=== PATIENT | female | born 1985 | race Caucasian/White ===

== ENCOUNTER 2016-05-19 14:52 | Emergency (ER) | payer OTHER ==
[2016-05-19 15:23] VITALS: BP 124/61
--- NOTE | 2016-05-19 15:29 | UC ---
Ear Complaint HPI - HPI Summary HPI Summary: RIGHT EAR PAIN/PRESSURE X "A COUPLE MONTHS." PT TX'D WITH Z-ODILIA FOR SINUSITIS APPROX 1 MO AGO WITHOUT RELIEF. No fever. she has sinus congestion but doesnt believe that she has a sinus infection. pain radiates into right jaw. 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 Does not chew gum a lot. Has had cerumen in ears that ahs had to be flushed before and wonders if that is the cause. Has had PE tubes as child. - History of Current Complaint Chief Complaint: UCEar Stated Complaint: RIGHT EAR PAIN Time Seen by Provider: 05/19/16 15:21 Hx Last Menstrual Period: 05/04/16 - Allergies/Home Medications Allergies/Adverse Reactions: Allergies Allergy/AdvReac Type Severity Reaction Status Date / Time No Known Allergies Allergy Verified 05/19/16 15:23 Home Medications: Home Medications Cyanocobalamin TAB* [Vitamin B12 TAB*] 1,000 mcg PO DAILY 05/19/16 [History Confirmed 05/19/16] Loratadine [Claritin 10 MG CAP] 10 mg PO DAILY 05/19/16 [History Confirmed 05/19] PMH/Surg Hx/FS Hx/Imm Hx Previously Healthy: Yes Respiratory History Of: Reports: Asthma - CHILDHOOD - Surgical History Surgical History: Yes Surgery Procedure, Year, and Place: Ovarian tumors 2008. OVARIAN CYSTECTOMY-- 2006. TONSILLECTOMY - Family History Known Family History: Negative: Cardiac Disease, Diabetes - Social History Alcohol Use: Occasionally Substance Use Type: None Smoking Status (MU): Former Smoker When Did the Patient Quit Smoking/Using Tobacco: 5 MOS AGO Review of Systems Constitutional: Negative Skin: Negative Eyes: Negative ENT: Ear Ache Respiratory: Negative Cardiovascular: Negative Gastrointestinal: Negative Genitourinary: Negative Motor: Negative Neurovascular: Negative Musculoskeletal: Negative Neurological: Negative Psychological: Negative All Other Systems Reviewed And Are Negative: Yes Physical Exam Triage Information Reviewed: Yes Appearance: Well-Appearing, No Pain Distress, Well-Nourished Vital Signs: Initial Vital Signs Temp 97.7 F 05/19/16 15:16 Pulse 63 05/19/16 15:16 Resp 14 05/19/16 15:16 BP 124/61 05/19/16 15:16 Pulse Ox 100 05/19/16 15:16 Vital Signs Reviewed: Yes Eye Exam: Normal ENT: Positive: Hearing grossly normal, Pharynx normal, TMs normal - scars from PE tubes b/l, Other: - no tenderness on TMJs. No cerumen b/l. no sinus tenderness b/l.. Negative: Tonsillar swelling, Tonsillar exudate, Muffled/ hoarse voice Dental Exam: Normal Neck exam: Normal Neck: Positive: Supple, Nontender, No Lymphadenopathy Respiratory Exam: Normal Respiratory: Positive: Lungs clear, Normal breath sounds, No respiratory distress, No accessory muscle use Cardiovascular Exam: Normal Cardiovascular: Positive: RRR, No Murmur, Pulses Normal, Brisk Capillary Refill Abdominal Exam: Normal Abdomen Description: Positive: Nontender, Soft Musculoskeletal Exam: Normal Neurological Exam: Normal Psychological Exam: Normal Skin Exam: Normal Ear Complaint Course/Dx - Differential Dx/Diagnosis Differential Diagnosis/HQI/PQRI: Cerumen Impaction, Foreign Body, Otitis Externa , Otitis Media, Perforated TM, TMJ Syndrome, URI Provider Diagnoses: Rt ear pain. TMJ vs eustachean tube dysfunction. Discharge - Discharge Plan Condition: Stable Disposition: HOME Patient Education Materials: Temporomandibular Disorder (ED), Eustachian Tube Dysfunction (GEN) Referrals: No Primary Care Phys,NOPCP [Primary Care Provider] - Additional Instructions: I believe your diagnosis is either TMJ or eustachean tube dysfunction that we discussed today. Use a netti pot or saline lavage followed by the steroid nasal spray (flonase or nasonex that are both OTC now) and take the claritin daily. Your Mom has had similar symptoms and your voiced that you wish to see the same ENT doctor that she sees. I advised that you call that ENT to make an appt. TMJ requires jaw rest, ice and ibuprofen for limited time as we discussed.
== END 2016-05-19 15:57 | disposition home or self-care (01) ==
LOC: UCCORT 14:52
DX: H92.01 Otalgia, right ear (principal); Z87.891 Personal history of nicotine dependence
CPT/HCPCS: 99211; G0463

== ENCOUNTER 2017-03-07 09:07 | Emergency (ER) | payer OTHER ==
[2017-03-07 09:23] VITALS: BP 130/62
--- NOTE | 2017-03-07 09:41 | UC ---
UC General HPI - HPI Summary HPI Summary: Last 4 days c/o progressive worse sinus congestion, post nasal drip, ear pressure. Mild cough d/t post nasal drip. No sob / cp. No GI / reported. No fever / chills. - History of Current Complaint Chief Complaint: UCRespiratory Stated Complaint: SINUS COMPLAINT Time Seen by Provider: 03/07/17 09:18 Hx Obtained From: Patient Hx Last Menstrual Period: 02/14/17 ovarian cyst removed and D & C - Allergy/Home Medications Allergies/Adverse Reactions: Allergies Allergy/AdvReac Type Severity Reaction Status Date / Time seasonal Allergy Congestion Uncoded 03/07/17 09:23 Home Medications: Home Medications Benadryl Allergy Congestion 1 tab PO Q4H PRN 03/07/17 [History Confirmed ] Ibuprofen TAB* [Motrin TAB* 800 MG] 800 mg PO Q24H PRN 03/07/17 [History Confirmed 03/07/17] PMH/Surg Hx/FS Hx/Imm Hx Previously Healthy: Yes - Surgical History Surgical History: Yes Surgery Procedure, Year, and Place: Ovarian tumors 2008. OVARIAN CYSTECTOMY-- 2006, 2017. TONSILLECTOMY - Family History Known Family History: Positive: None Negative: Cardiac Disease, Diabetes - Social History Alcohol Use: Weekly Alcohol Amount: 10 Substance Use Type: None Smoking Status (MU): Former Smoker When Did the Patient Quit Smoking/Using Tobacco: 5 MOS AGO Review of Systems Constitutional: Negative Skin: Negative Eyes: Negative ENT: Sore Throat, Ear Ache, Nasal Discharge, Sinus Congestion Respiratory: Cough Cardiovascular: Negative Gastrointestinal: Negative Genitourinary: Negative Motor: Negative Neurovascular: Negative Musculoskeletal: Negative Neurological: Negative Psychological: Negative Is Patient Immunocompromised?: No All Other Systems Reviewed And Are Negative: Yes Physical Exam Triage Information Reviewed: Yes Appearance: Well-Nourished Vital Signs: Initial Vital Signs Temp 97.9 F 03/07/17 09:15 Pulse 90 03/07/17 09:15 Resp 18 03/07/17 09:15 BP 130/62 03/07/17 09:15 Vital Signs Reviewed: Yes Eye Exam: Normal ENT: Positive: Pharyngeal erythema - mild redness, c/w post nasal drip. uvula midline., Other - R TM + scar c/w prior PE tube L TM nagel, rtx'd. EAC's generally unremarkable. Neck exam: Normal Neck: Positive: Supple, Nontender, No Lymphadenopathy Respiratory Exam: Normal Respiratory: Positive: Chest non-tender, Lungs clear, Normal breath sounds, No respiratory distress Cardiovascular Exam: Normal Cardiovascular: Positive: RRR, No Murmur, Pulses Normal, Brisk Capillary Refill Abdominal Exam: Normal Abdomen Description: Positive: Nontender Musculoskeletal Exam: Normal Neurological Exam: Normal Psychological Exam: Normal Skin Exam: Normal Course/Dx - Course Course Of Treatment: Reviewed coa / tx plan. Questions as posed answered to the best of my ability. She also notes that she just started antianxiety medication, but can't remember the name. - Differential Dx - Multi-Symptom Provider Diagnoses: Acute sinusitis Discharge - Discharge Plan Condition: Stable Disposition: HOME Patient Education Materials: Sinusitis (ED) Referrals: SUPRIYA Castro [Primary Care Provider] - Additional Instructions: check with your pharmacist about over the counter cold medications (make sure they don't interfere with your other medications) follow up with your primary care physician per routine, seek medical attention sooner for worse or new problems in the meantime. Probiotic and / or yogurt while taking antibiotic.
== END 2017-03-07 09:50 | disposition home or self-care (01) ==
LOC: UCCORT 09:07
DX: J01.90 Acute sinusitis, unspecified (principal); R09.82 Postnasal drip; Z91.048 Other nonmedicinal substance allergy status; Z87.891 Personal history of nicotine dependence
CPT/HCPCS: 99212; G0463

== ENCOUNTER 2018-03-05 15:21 | Emergency (ER) | payer BC, OTHER ==
[2018-03-05 17:00] VITALS: BP 141/93
--- NOTE | 2018-03-05 17:19 | ED ---
Throat Pain/Nasal Congestion - HPI Summary HPI Summary: 33 yr old female with sinus pain, post nasal drip, coughing. Onset about 3 weeks ago. She was prescribed a z back, and got a little better but not fully. She is complaining of persistent post nasal drip, coughing, and sinus pressure. - History of Current Complaint Chief Complaint: UCRespiratory Time Seen by Provider: 03/05/18 17:01 - Allergies/Home Medications Allergies/Adverse Reactions: Allergies Allergy/AdvReac Type Severity Reaction Status Date / Time seasonal Allergy Congestion Uncoded 03/05/18 16:50 Home Medications: Home Medications Bupropion XL* [Wellbutrin XL *] 300 mg PO DAILY 03/05/18 [History Confirmed 05/19] hydrOXYzine HCL TAB* [Atarax 25 MG TAB*] 25 mg PO DAILY PRN 03/05/18 [History Confirmed 03/05/18] PMH/Surg Hx/FS Hx/Imm Hx Respiratory History: Reports: Hx Asthma - CHILDHOOD - Surgical History Surgery Procedure, Year, and Place: Ovarian tumors 2008. OVARIAN CYSTECTOMY-- 2006, 2016. TONSILLECTOMY Infectious Disease History: No Infectious Disease History: Denies: Traveled Outside the [place] in Last 30 Days - Family History Known Family History: Positive: None Negative: Cardiac Disease, Diabetes - Social History Alcohol Use: Occasionally Alcohol Amount: 10 Substance Use Type: Reports: None Smoking Status (MU): Former Smoker Review of Systems Constitutional: Negative Positive: Sore Throat, Nasal Discharge Positive: Cough All Other Systems Reviewed And Are Negative: Yes Physical Exam Triage Information Reviewed: Yes Vital Signs On Initial Exam: Initial Vitals Temp Pulse Resp BP Pulse Ox 98.6 F 81 15 141/93 98 03/05/18 16:54 03/05/18 16:54 03/05/18 16:54 03/05/18 16:54 03/05/18 16:54 Vital Signs Reviewed: Yes Appearance: Positive: Well-Appearing, No Pain Distress Skin: Positive: Warm, Skin Color Reflects Adequate Perfusion Head/Face: Positive: Normal Head/Face Inspection Eyes: Positive: EOMI ENT: Positive: Pharyngeal erythema, Nasal congestion, Nasal drainage, TMs normal , Sinus tenderness Neck: Positive: Nontender Respiratory/Lung Sounds: Positive: Clear to Auscultation, Breath Sounds Present Cardiovascular: Positive: RRR. Negative: Murmur Abdomen Description: Positive: Nontender Musculoskeletal: Positive: Strength/ROM Intact Neurological: Positive: Sensory/Motor Intact, Alert, Oriented to Person Place, Time, CN Intact II-III Psychiatric: Positive: Normal - Ian Coma Scale Best Eye Response: 4 - Spontaneous Best Motor Response: 6 - Obeys Commands Best Verbal Response: 5 - Oriented Coma Scale Total: 15 Diagnostics - Vital Signs Vital Signs Temp Pulse Resp BP Pulse Ox 03/05/18 16:54 98.6 F 81 15 141/93 98 - Laboratory Lab Statement: Any lab studies that have been ordered have been reviewed, and results considered in the medical decision making process. EENT Course/Dx - Course Course Of Treatment: 33 yr old with sinusitis. Rx augmentin - Diagnoses Provider Diagnoses: Sinusitis Discharge - Sign-Out/Discharge Documenting (check all that apply): Patient Departure All imaging exams completed and their final reports reviewed: No Studies - Discharge Plan Condition: Good Disposition: HOME Prescriptions: Amoxicillin/Clavulanate TAB* [Augmentin TAB 875*] 875 mg PO BID #20 tab Patient Education Materials: Sinusitis (ED), Hypertension (ED) Referrals: No Primary Care Phys,NOPCP [Primary Care Provider] - [facility]Outside] - 2 Days - Billing Disposition and Condition Condition: GOOD Disposition: Home
== END 2018-03-05 17:24 | disposition home or self-care (01) ==
LOC: UCCORT 15:21
DX: J32.9 Chronic sinusitis, unspecified (principal); Z87.891 Personal history of nicotine dependence
CPT/HCPCS: 99212; G0463

== ENCOUNTER 2018-11-24 15:08 | Emergency (ER) | payer BC ==
[2018-11-24 16:41] VITALS: BP 117/78
--- NOTE | 2018-11-24 16:55 | UC ---
Throat Pain/Nasal Doc HPI - HPI Summary HPI Summary: 33-year-old woman comes in with a chief complaint of a month and a half of upper respiratory tract infection symptoms. She has sinus pressure and green rhinorrhea. Intermittent ear pain. She also reports some intermittent wheezing. She has used albuterol in the past she does not have any now. No recent fevers measured. She's been taking multiple different [id number] medications without any relief. - History of Current Complaint Chief Complaint: UCGeneralIllness Stated Complaint: EAR PAIN,ST Time Seen by Provider: 11/24/18 16:36 Hx Last Menstrual Period: PERIODS ARE IRREGULAR CANT RECALL WHEN LAST ONE WAS. Pain Intensity: 1 - Allergies/Home Medications Allergies/Adverse Reactions: Allergies Allergy/AdvReac Type Severity Reaction Status Date / Time aspirin AdvReac Intermediate heart Verified 10/24/18 10:44 [From Excedrin Extra races, Strength] light headed nausea caffeine AdvReac Intermediate heart Verified 10/24/18 10:43 [From Excedrin Extra races, Strength] light headed nausea seasonal Allergy Congestion Uncoded 10/24/18 10:26 Home Medications: Home Medications D-Methorphan/PE/Acetaminophen [Cold Relief/Non-Drowsy/Da 10-5-325 mg] 1 tab PO 11/24/18 [History] PMH/Surg Hx/FS Hx/Imm Hx Previously Healthy: Yes - Surgical History Surgical History: Yes Surgery Procedure, Year, and Place: Ovarian tumors 2009. OVARIAN CYSTECTOMY-- 2006, 2017. TONSILLECTOMY. WISDOM TEETH EXTRACTIONS - Family History Known Family History: Positive: None Negative: Cardiac Disease, Diabetes - Social History Alcohol Use: None Alcohol Amount: 10 Substance Use Type: None Smoking Status (MU): Former Smoker When Did the Patient Quit Smoking/Using Tobacco: 2018 Review of Systems All Other Systems Reviewed And Are Negative: Yes Constitutional: Positive: Other - see hpi Skin: Positive: Negative ENT: Positive: Sore Throat, Ear Ache, Nasal Discharge, Sinus Congestion, Sinus Pain/Tenderness Respiratory: Positive: Other - see hpi Cardiovascular: Positive: Negative Gastrointestinal: Positive: Negative Motor: Positive: Negative Neurovascular: Positive: Negative Musculoskeletal: Positive: Negative Neurological: Positive: Negative Psychological: Positive: Negative Is Patient Immunocompromised?: No Physical Exam Triage Information Reviewed: Yes Appearance: No Pain Distress, Well-Nourished, Ill-Appearing - mild Vital Signs: Initial Vital Signs Temp 96.7 F 11/24/18 16:36 Pulse 70 11/24/18 16:36 Resp 18 11/24/18 16:36 BP 117/78 11/24/18 16:36 Pulse Ox 98 11/24/18 16:36 Vital Signs Reviewed: Yes Eye Exam: Normal Eyes: Positive: Conjunctiva Clear ENT: Positive: Pharyngeal erythema, Nasal congestion, Nasal drainage, TMs normal Neck: Positive: Supple Respiratory: Positive: Lungs clear, Normal breath sounds, No respiratory distress Cardiovascular: Positive: RRR Musculoskeletal: Positive: Strength Intact, ROM Intact Neurological: Positive: Alert, Muscle Tone Normal Psychological: Positive: Age Appropriate Behavior Skin Exam: Normal Throat Pain/Nasal Course/Dx - Differential Dx/Diagnosis Provider Diagnosis: Sinusitis Discharge ED - Sign-Out/Discharge Documenting (check all that apply): Patient Departure All imaging exams completed and their final reports reviewed: No Studies - Discharge Plan Condition: Stable Disposition: HOME Prescriptions: Albuterol HFA INHALER* [Ventolin HFA Inhaler*] 2 puff INH Q4H PRN #1 mdi PRN Reason: Wheezing Amoxicillin PO (*) [Amoxicillin 875 MG (*)] 875 mg PO BID #20 tab Patient Education Materials: Sinusitis (ED) Forms: *Work Release Referrals: Kristi Duran MD [Primary Care Provider] - Additional Instructions: FOLLOW UP WITH YOUR DOCTOR IF NOT COMPLETELY IMPROVED. GET RECHECKED SOONER IF WORSE OR ANY QUESTIONS OR CONCERNS. - Billing Disposition and Condition Condition: STABLE Disposition: Home
== END 2018-11-24 17:00 | disposition home or self-care (01) ==
LOC: UCCORT 15:08
DX: J32.9 Chronic sinusitis, unspecified (principal); Z88.6 Allergy status to analgesic agent; Z87.891 Personal history of nicotine dependence
CPT/HCPCS: 99212; G0463

== ENCOUNTER 2019-04-11 11:37 | Emergency (ER) | payer BC ==
[2019-04-11 12:52] VITALS: BP 142/83
[2019-04-11 14:04] LABS: Influenza B Molecular POSITIVE (Negative)
--- NOTE | 2019-04-11 14:15 | UC ---
FLU HPI - HPI Summary HPI Summary: Pt presents with c/o sudden onset of cough, fever, chills, body aches, nasal congestion X 2 days. - History of Current Complaint Chief Complaint: UCGeneralIllness Stated Complaint: COUGH,BODY ACHES, VOMITING Time Seen by Provider: 04/11/19 14:08 Hx Obtained From: Patient Hx Last Menstrual Period: 03/29/19 ?: No Onset/Duration: Sudden Onset, Lasting Days, Still Present Severity Currently: Mild Severity Initially: Moderate Pain Intensity: 0 Associated Signs & Symptoms: Positive: Fever, Myalgia, Cough, Nasal Congestion Related Hx: Possible Flu/Infectious Exposure - Risk Factors Influenza Risk Factors: Negative - Allergy/Home Medications Allergies/Adverse Reactions: Allergies Allergy/AdvReac Type Severity Reaction Status Date / Time aspirin AdvReac Intermediate heart Verified 04/11/19 12:52 [From Excedrin Extra races, Strength] light headed nausea caffeine AdvReac Intermediate heart Verified 04/11/19 12:52 [From Excedrin Extra races, Strength] light headed nausea seasonal Allergy Congestion Uncoded 04/11/19 12:52 PMH/Surg Hx/FS Hx/Imm Hx Previously Healthy: Yes - Surgical History Surgical History: Yes Surgery Procedure, Year, and Place: Ovarian tumors 2009. OVARIAN CYSTECTOMY-- 2006, 2017. TONSILLECTOMY. WISDOM TEETH EXTRACTIONS - Family History Known Family History: Positive: None Negative: Cardiac Disease, Diabetes - Social History Occupation: Employed Full-time Lives: With Family Alcohol Use: None Alcohol Amount: 10 Substance Use Type: None Smoking Status (MU): Former Smoker Have You Smoked in the Last Year: No When Did the Patient Quit Smoking/Using Tobacco: 2018 - Immunization History Vaccination Up to Date: No Review of Systems All Other Systems Reviewed And Are Negative: Yes Constitutional: Positive: Fever, Chills, Fatigue Skin: Positive: Negative Eyes: Positive: Negative ENT: Positive: Sinus Congestion Respiratory: Positive: Cough Cardiovascular: Positive: Negative Gastrointestinal: Positive: Negative Genitourinary: Positive: Negative Motor: Positive: Negative Neurovascular: Positive: Negative Musculoskeletal: Positive: Myalgia Neurological: Positive: Headache Psychological: Positive: Negative Is Patient Immunocompromised?: No Physical Exam Triage Information Reviewed: Yes Appearance: Ill-Appearing Vital Signs: Initial Vital Signs Temp 98.9 F 04/11/19 12:45 Pulse 102 04/11/19 12:45 Resp 18 04/11/19 12:45 BP 142/83 04/11/19 12:45 Pulse Ox 100 04/11/19 12:45 Vital Signs Reviewed: Yes Eye Exam: Normal ENT: Positive: Nasal congestion Dental Exam: Normal Neck exam: Normal Respiratory Exam: Normal Cardiovascular: Positive: Tachycardia Musculoskeletal Exam: Normal Neurological Exam: Normal Psychological Exam: Normal Skin Exam: Normal Flu Course/Dx - Differential Dx/Diagnosis Differential Diagnosis/HQI/PQRI: Bronchitis, Influenza, Upper Respiratory Infection Provider Diagnosis: Influenza B Discharge ED - Sign-Out/Discharge Documenting (check all that apply): Patient Departure All imaging exams completed and their final reports reviewed: No Studies - Discharge Plan Condition: Stable Disposition: HOME Prescriptions: Albuterol HFA INHALER* [Ventolin HFA Inhaler*] 2 puff INH Q4H PRN #1 mdi PRN Reason: Wheezing Oseltamivir CAP* [Tamiflu CAP*] 75 mg PO Q12H #10 cap predniSONE 10 mg TAB [Deltasone 10 MG TAB*] 30 mg PO DAILY #12 tab Patient Education Materials: Influenza (ED) Forms: *Work Release Referrals: Kristi Duran MD [Primary Care Provider] - If Needed - Billing Disposition and Condition Condition: STABLE Disposition: Home
== END 2019-04-11 14:27 | disposition home or self-care (01) ==
LOC: UCCORT 11:37
DX: J10.1 Influenza due to other identified influenza virus with other respiratory manifestations (principal); Z87.891 Personal history of nicotine dependence; Z88.6 Allergy status to analgesic agent; Z88.8 Allergy status to other drugs, medicaments and biological substances; Z91.09 Other allergy status, other than to drugs and biological substances
CPT/HCPCS: 99211; G0463

== ENCOUNTER 2019-04-14 16:02 | Emergency (ER) | payer BC ==
[2019-04-14 16:53] VITALS: BP 122/74
--- NOTE | 2019-04-14 17:37 | UC ---
FLU HPI - HPI Summary HPI Summary: Pt presents with c/o of new symptoms since being diagnosed with flu on 04/11/19. Pt has been taking tramiflu and reports that fever, chills and body aches have improved but now has feeling of chest congestion and tightness with bilateral ear pain. - History of Current Complaint Chief Complaint: UCGeneralIllness Stated Complaint: FLU+ 2// WORSE Time Seen by Provider: 04/14/19 16:57 Hx Obtained From: Patient Hx Last Menstrual Period: last week 2019, denies risk for pregnancies ?: No Onset/Duration: Gradual Onset, Lasting Days, Still Present Severity Currently: Mild Severity Initially: Mild Pain Intensity: 4 Associated Signs & Symptoms: Positive: Myalgia, Cough, Nasal Congestion Related Hx: Possible Flu/Infectious Exposure - Risk Factors Influenza Risk Factors: Negative - Allergy/Home Medications Allergies/Adverse Reactions: Allergies Allergy/AdvReac Type Severity Reaction Status Date / Time aspirin AdvReac Intermediate heart Verified 04/14/19 16:50 [From Excedrin Extra races, Strength] light headed nausea caffeine AdvReac Intermediate heart Verified 04/14/19 16:50 [From Excedrin Extra races, Strength] light headed nausea seasonal Allergy Congestion Uncoded 04/14/19 16:50 PMH/Surg Hx/FS Hx/Imm Hx Previously Healthy: Yes - Surgical History Surgical History: Yes Surgery Procedure, Year, and Place: Ovarian tumors 2009. OVARIAN CYSTECTOMY-- 2006, 2017. TONSILLECTOMY. WISDOM TEETH EXTRACTIONS - Family History Known Family History: Positive: None Negative: Cardiac Disease, Diabetes - Social History Occupation: Employed Full-time Lives: With Family Alcohol Use: None Alcohol Amount: 10 Substance Use Type: None Smoking Status (MU): Former Smoker Have You Smoked in the Last Year: No When Did the Patient Quit Smoking/Using Tobacco: 2018 - Immunization History Vaccination Up to Date: No Review of Systems All Other Systems Reviewed And Are Negative: Yes Constitutional: Positive: Chills, Fatigue Skin: Positive: Negative Eyes: Positive: Negative ENT: Positive: Sore Throat, Ear Ache Respiratory: Positive: Cough Cardiovascular: Positive: Negative Gastrointestinal: Positive: Negative Genitourinary: Positive: Negative Motor: Positive: Negative Neurovascular: Positive: Negative Musculoskeletal: Positive: Myalgia Neurological/Mental Status: Positive: Headache Psychological: Positive: Negative Is Patient Immunocompromised?: No Physical Exam Triage Information Reviewed: Yes Appearance: Well-Appearing Vital Signs: Initial Vital Signs Temp 97.9 F 04/14/19 16:47 Pulse 65 04/14/19 16:47 Resp 15 04/14/19 16:47 BP 122/74 04/14/19 16:47 Pulse Ox 99 04/14/19 16:47 Vital Signs Reviewed: Yes Eye Exam: Normal ENT: Positive: Nasal congestion Dental Exam: Normal Neck exam: Normal Respiratory Exam: Normal Cardiovascular Exam: Normal Musculoskeletal Exam: Normal Neurological Exam: Normal Psychological Exam: Normal Skin Exam: Normal Flu Course/Dx - Course Course Of Treatment: Pt was advised to discontinue taking tamiflu. pt verbalized understanding and agreed to plan of care. - Differential Dx/Diagnosis Differential Diagnosis/HQI/PQRI: Influenza, Upper Respiratory Infection Provider Diagnosis: Viral syndrome Discharge ED - Sign-Out/Discharge Documenting (check all that apply): Patient Departure All imaging exams completed and their final reports reviewed: No Studies - Discharge Plan Condition: Stable Disposition: HOME Patient Education Materials: Viral Syndrome (ED) Forms: *Work Release Referrals: Kristi Duran MD [Primary Care Provider] - If Needed - Billing Disposition and Condition Condition: STABLE Disposition: Home
== END 2019-04-14 17:41 | disposition home or self-care (01) ==
LOC: UCCORT 16:02
DX: B34.9 Viral infection, unspecified (principal); R09.81 Nasal congestion; R51 Headache; M79.10 Myalgia, unspecified site; J02.9 Acute pharyngitis, unspecified; H92.03 Otalgia, bilateral; R53.83 Other fatigue; Z88.8 Allergy status to other drugs, medicaments and biological substances; Z88.6 Allergy status to analgesic agent; Z91.09 Other allergy status, other than to drugs and biological substances; Z87.891 Personal history of nicotine dependence
CPT/HCPCS: 71046; 99211; G0463